=== PATIENT | female | born 1995 | race Caucasian/White ===

== ENCOUNTER 2021-01-22 09:09 | Inpatient (IN) | payer MEDICAID ==
[2021-01-22] MEDS ORDERED: Carboprost Tromethamine 250 MCG/1 ML Amp IM PRN (09:36)
[2021-01-22] MEDS ORDERED: Lidocaine 1% 30 ML SDV INJECT PRN (09:36)
[2021-01-22] MEDS ORDERED: Tranexamic Acid 1,000 MG in Sodium Chloride 0.9% 100 ML IV PRN (09:36)
[2021-01-22] MEDS ORDERED: Sodium Chloride 0.9% 10 ML Syringe FLUSH PRN ×2 (09:36→18:47)
[2021-01-22] MEDS ORDERED: Misoprostol 400 MCG (4 X 100 MCG TAB) RECTAL PRN (09:36)
[2021-01-22] MEDS ORDERED: Methylergonovine 0.2 MG/1 ML Amp IM PRN (09:36)
[2021-01-22] MEDS ORDERED: Lactated Ringers 1,000 ML IV ONE (09:36)
[2021-01-22] MEDS ORDERED: fentaNYL 100 MCG/2 ML SDV IVPUSH PRN (09:36)
[2021-01-22] MEDS ORDERED: Oxytocin/Normal Saline 30 UNIT/500 ML BAG IV SCH (09:45)
[2021-01-22] MEDS: Lactated Ringers 1,000 ML IV SCH ×3 (11:11→16:00)
--- NOTE | 2021-01-22 12:44 | PN ---
DATE: 01/22/2021 SUBJECTIVE: The patient's contractions are getting stronger. She just received some fentanyl. OBJECTIVE: VITAL SIGNS: heart tones in the 130s when detected. GENITOURINARY: Tocometer reveals occasional contractions. She is breathing through her contractions. Vaginal exam reveals her to be 4+ cm, -1 station, vertex suspected, 70% effaced, artificial rupture of membranes done after discussion with the patient yielding copious amounts of clear fluid. INVESTIGATIONS: Coronavirus disease negative. Hemoglobin was 9.9 and platelets were within normal limits. ASSESSMENT: Intrauterine at 39 and 6/7 weeks by 9 and 2/7 weeks ultrasound, admitted in active labor with contractions and cervical change in a G3, P0-2-0-2, GBS negative, Rh negative, RhoGAM given appropriately. Asthmatic with history of preeclampsia with blood pressures normal today. PLAN: We will continue to follow clinically and closely. Intrathecal at request. This was discussed with the patient. [facility] /[id number]
[2021-01-22] MEDS: Ondansetron 4 MG/2 ML SDV IVPUSH PRN ×2 (13:29→17:32)
[2021-01-22] MEDS ORDERED: Sodium Bicarbonate 4.2% 2.5 MEQ/5 ML SDV ONE ×3 (13:30→17:32)
[2021-01-22] MEDS ORDERED: Sodium Chloride 0.9% 20 ML SDV ONE (13:30)
[2021-01-22] MEDS ORDERED: fentaNYL 100 MCG/2 ML SDV IV ONE (13:30)
[2021-01-22] MEDS ORDERED: fentaNYL 100 MCG/2 ML SDV ONE ×2 (13:36→17:31)
[2021-01-22] MEDS ORDERED: EPINEPHrine 1 MG/1 ML Amp ONE ×2 (13:36→17:31)
--- NOTE | 2021-01-22 14:00 | PCM.SN.2 ---
- Free Text/Narrative Note: Intrathecal. Sitting position, sterile prep and drape. 1% lidocaine w bicarb for skinwheal to L2 L3 interspace. Introducer, 24 ga pencan x 1. I:1000 pf epi wash, 15 mcg pf sufenta, 35 mcg pf fentanyl, 0.4 ml pf NS and 6 mg of 0.75% pf Marcaine injected after CSF aspiration. Pt to L lateral position after 40 seconds. Procedure time 1330 to 1405
--- NOTE | 2021-01-22 14:39 | OBOUT ---
DATE: 01/22/2021 TIME: 9:20 to 9:38. REASON FOR NST: 1. Intrauterine at 39 and 6/7 weeks by 9 and 2/7 weeks ultrasound. 2. Contractions with suspected labor 3+ cm upon admission. 3. Rh negative. RhoGAM given on 12/01/2020 with Tdap as well. 4. History of preeclampsia. 5. Asthma. Uses albuterol and Flovent regularly. 6. GBS negative. 7. BV - treated earlier in the . 8. Urine drug screen is negative during the and also noted specifically on 10/16/2020 and 12/01/2020. 9. G3, P0-2-0-2. NST INTERPRETATION: During this time period, heart tone baseline is approximately 130 and at least two 15 x 15 beats per minute acceleration making this strip reactive and also noted to be reassuring. Tocometer reveals potential of 2 contractions felt by the patient. Blood pressure 125/62, heart rate 109, temperature 97.8. ASSESSMENT: 1. NST - reactive and reassuring. 2. Tocometer with 2 contractions and that were felt by the patient. PLAN: With this NST, vaginal exam revealed to be 3+ cm, -1 to -2 station, 60% to 70% effaced, vertex suspected with bag of water felt. She was initially scheduled for induction of labor later this weekend, but as she is in labor with significant cervical change from evaluation done earlier this week with painful contractions, we will admit and most likely we will proceed with artificial rupture of membranes and following clinically and closely thereafter. The patient understands and agrees with the above treatment plan. At the current time of dictation, waiting on a coronavirus disease and CBC before moving to her regular room as she is in the outpatient room. For this, history and physical was done through [employer]. Please see updates sticker to relate the above information noting that the patient started contractions on the evening of 01/21/2021, increasing in frequency and intensity to the point that they were rated 9/10, felt in the lower abdomen, coming anywhere from every 30 minutes to every 10 to 12 minutes, and has had cervical change as above. Plan will be to admit, artificial rupture of membranes after labs are negative and follow closely thereafter. Review of systems reviewed today and contributory for the above with notable for having some mild spotting with her contractions, otherwise no leaking of fluid. Good movement. She denies any headaches, visual changes, or upper abdominal pain. She states her breathing has been stable and has her inhalers with her, and most likely will use her home inhalers. Please see H and P otherwise done in [facility]. [facility] /[id number]
--- NOTE | 2021-01-22 17:49 | PCM.SN.2 ---
- Free Text/Narrative Note: Intrathecal. Sitting position, sterile prep and drape. 1% lidocaine w bicarb for skinwheal to L2 L3 interspace. Introducer, 24 ga pencan x 1. I:1000 pf epi wash, 15 mcg pf sufenta, 35 mcg pf fentanyl, 0.4 ml pf NS and 6 mg of 0.75% pf Marcaine injected after CSF aspiration. Pt to L lateral position after 20 seconds. Procedure time 1730 to 1800
[2021-01-22] MEDS ORDERED: Zolpidem 5 MG Tab PO PRN (18:47)
[2021-01-22] MEDS ORDERED: Oxytocin 10 Units/1 ML SDV IM PRN (18:47)
[2021-01-22] MEDS ORDERED: Benzocaine/Menthol 20%-0.5% Spray 78 GM Cannister TOP PRN (18:47)
--- NOTE | 2021-01-22 19:07 | PCM.DEL ---
L & D Note - Delivery Note Provider: Laith Campos Vacuum Extractor Progress Note - Alternative Labor Strategies Considered Alternative Labor Strategies Considered:: Reports: Yes Strategies Considered:: Reports: Contraction Intensity Adequate, Position Changes Used to Facilitate Rotation & Descent, Empty Bladder, Rest Indications Considered:: Reports: Yes Indications:: Reports: Suspicion of Immediate or Potential Compromise Time Out:: Reports: Yes - Patient Prepared Patient Prepared:: Reports: Yes Informed Consent:: Reports: Yes, Verbal Risks: Reports: Yes Risks Include:: Reports: Laceration, Shoulder Dystocia, Maternal Injury, Other ( injury) Anesthesia/Analgesia Adequate:: Reports: Yes - Probability of Success High Probability of Success:: Reports: Yes Weight Estimated:: Reports: AGA Patient Diabetic:: Reports: No Pelvis Adequate:: Reports: Yes Position:: RANDOLPH Asynclitic:: Reports: No Station:: VTX SEEN SPLITTING LABIA - Application Time Maximum Application Time & Number of Pop-Offs Predetermined:: Reports: Yes Number of Times Cup Disengaged:: 0 (SEE NURSES NOTES FOR TIMES) Type of Vacuum Used:: Reports: Cup: Soft (KIWI WITH SMALL CUP) Vacuum Extraction: Successful - Exit Strategy Exit strategy available:: Reports: Yes and resuscitation teams readily available:: Reports: Yes - General Info Date of Service: 01/22/21 - Patient Data Vitals - Most Recent: Last Vital Signs Temp 97.3 F 01/22/21 17:10 Pulse 87 01/22/21 17:25 Resp 18 01/22/21 09:25 BP 130/86 01/22/21 17:25 Pulse Ox 97 01/22/21 16:05 Weight - Most Recent: 94.347 kg I&O - Last 24 Hours: Intake & Output 01/22/21 01/22/21 01/22/21 06:59 14:59 22:59 Intake Total 1000 Balance 1000 Lab Results Last 24 Hours: Laboratory Results - last 24 hr 01/22/21 01/22/21 Range/Units 09:55 10:16 WBC 10.6 H (5.0-10.0) 10^3/uL RBC 3.35 L (4.2-5.4) 10^6/uL Hgb 9.9 L (12.0-16.0) g/dL Hct 31.2 L (37.0-47.0) % MCV 93.1 (80-100) fL MCH 29.6 (27.0-34.0) pg MCHC 31.7 L (33.0-35.0) g/dL Plt Count 291 (150-450) 10^3/uL SARS-CoV-2 RNA (FRANKLYN) Negative (NEGATIVE) Med Orders - Current: Current Medications Acetaminophen (Acetaminophen 325 Mg Tab) 650 mg PO Q4H PRN PRN Reason: Pain (Mild 1-3) and fever Benzocaine/Menthol (Benzocaine/Menthol 20%-0.5% [place] 78 Gm Cannister) 0 gm TOP Q4H PRN PRN Reason: Perineal comfort measures Carboprost Tromethamine (Carboprost Tromethamine 250 Mcg/1 Ml Amp) 250 mcg IM ASDIRECTED PRN PRN Reason: HEMORRHAGE Docusate Sodium (Docusate Sodium 100 Mg Cap) 100 mg PO BID PRN PRN Reason: Constipation Fentanyl (Fentanyl 100 Mcg/2 Ml Sdv) 50 mcg IVPUSH Q1H PRN PRN Reason: Pain (moderate 4-6) Last Admin: 01/22/21 11:12 Dose: 50 mcg Documented by: Ferrous Sulfate (Ferrous Sulfate 325 Mg Tab) 325 mg PO WITHBREAKFAST DEXTER Tranexamic Acid 1,000 mg/ (Sodium Chloride) 110 mls @ 660 mls/hr IV ONETIME PRN PRN Reason: Bleeding Oxytocin/Sodium Chloride (Pitocin In Ns 30 Unit/500 Ml) 30 unit in 500 mls @ 2 mls/hr IV TITRATE DEXTER; Protocol Last Titration: 01/22/21 18:50 Dose: 250 munits/min, 250 mls/hr Documented by: Lactated Ringer's (Ringers, Lactated) 1,000 mls @ 125 mls/hr IV ASDIRECTED DEXTER Last Admin: 01/22/21 16:00 Dose: 125 mls/hr Documented by: Ibuprofen (Ibuprofen 800 Mg Tab) 800 mg PO Q8H PRN PRN Reason: Pain Lidocaine HCl (Lidocaine 1% 30 Ml Sdv) 30 ml INJECT ASDIRECTED PRN PRN Reason: Perineal Repair Methylergonovine Maleate (Methylergonovine 0.2 Mg/1 Ml Amp) 0.2 mg IM ASDIRECTED PRN PRN Reason: Hemorrhage Misoprostol (Misoprostol 400 Mcg (4 X 100 Mcg Tab)) 800 mcg RECTAL ASDIRECTED PRN PRN Reason: Hemorrhage Ondansetron HCl (Ondansetron 4 Mg/2 Ml Sdv) 4 mg IVPUSH Q4H PRN PRN Reason: Nausea/Vomiting Last Admin: 01/22/21 17:32 Dose: 4 mg Documented by: Oxytocin (Oxytocin 10 Units/1 Ml Sdv) 10 unit IM ONETIME PRN PRN Reason: Bleeding Prenat Multivit/Vance/Iron/Folic Ac ( Multivitamin With Calcium/Folic Acid/Iron Tab) 1 each PO DAILY DEXTER Simethicone (Simethicone 80 Mg Tab.Chew) 80 mg PO Q4H PRN PRN Reason: Gas Sodium Chloride (Sodium Chloride 0.9% 10 Ml Syringe) 10 ml FLUSH ASDIRECTED PRN PRN Reason: Keep Vein Open Sodium Chloride (Sodium Chloride 0.9% 10 Ml Syringe) 10 ml FLUSH ASDIRECTED PRN PRN Reason: Keep Vein Open Zolpidem Tartrate (Zolpidem 5 Mg Tab) 5 mg PO BEDTIME PRN PRN Reason: Insomnia Discontinued Medications Epinephrine HCl (Epinephrine 1 Mg/1 Ml Amp) Confirm Administered Dose 1 mg .ROUTE .STK-MED ONE Stop: 01/22/21 13:37 Epinephrine HCl (Epinephrine 1 Mg/1 Ml Amp) Confirm Administered Dose 1 mg .ROUTE .STK-MED ONE Stop: 01/22/21 17:32 Fentanyl (Fentanyl 100 Mcg/2 Ml Sdv) Confirm Administered Dose 100 mcg .ROUTE .STK-MED ONE Stop: 01/22/21 13:37 Fentanyl (Fentanyl 100 Mcg/2 Ml Sdv) Confirm Administered Dose 100 mcg .ROUTE .STK-MED ONE Stop: 01/22/21 17:32 Lactated Ringer's (Ringers, Lactated) 1,000 mls @ 500 mls/hr IV BOLUS ONE Stop: 01/22/21 11:35 Sodium Bicarbonate (Sodium Bicarbonate 4.2% 2.5 Meq/5 Ml Sdv) Confirm Administered Dose 2.5 meq .ROUTE .STK-MED ONE Stop: 01/22/21 13:37 Sodium Bicarbonate (Sodium Bicarbonate 4.2% 2.5 Meq/5 Ml Sdv) Confirm Administered Dose 2.5 meq .ROUTE .STK-MED ONE Stop: 01/22/21 17:33 Sufentanil Citrate (Sufentanil 50 Mcg/1 Ml Amp) Confirm Administered Dose 50 mcg .ROUTE .STK-MED ONE Stop: 01/22/21 13:37 Sufentanil Citrate (Sufentanil 50 Mcg/1 Ml Amp) Confirm Administered Dose 50 mcg .ROUTE .STK-MED ONE Stop: 01/22/21 17:33 - Exam Urinary Catheter Total Time: 0Days 0Hours - Problem List Review Problem List Initiated/Reviewed/Updated: Yes - My Orders Last 24 Hours: My Active Orders 01/22/21 Breakfast Regular Diet [DIET] 01/22/21 09:36 Patient Status [ADT] Routine Communication Order [RC] ASDIRECTED Notify Provider Vital Signs OB [RC] ASDIRECTED Notify Provider [RC] PRN Up ad Laura [RC] ASDIRECTED Vital Signs [RC] 08,20 Acetaminophen [TylenoL] 650 mg PO Q4H PRN Carboprost Tromethamine [Hemabate DS] 250 mcg IM ASDIRECTED PRN Lidocaine 1% [Xylocaine-MPF 1%] 30 ml INJECT ASDIRECTED PRN Methylergonovine [Methergine] 0.2 mg IM ASDIRECTED PRN Ondansetron [Zofran] 4 mg IVPUSH Q4H PRN Sodium Chloride 0.9% [Saline Flush] 10 ml FLUSH ASDIRECTED PRN Tranexamic Acid [Cyklokapron] 1,000 mg Sodium Chloride 0.9% [Normal Saline] 100 ml IV ONETIME fentaNYL [Sublimaze] 50 mcg IVPUSH Q1H PRN miSOPROStoL [Cytotec] 800 mcg RECTAL ASDIRECTED PRN Saline Lock Insert [OM.PC] Routine Resuscitation Status Routine 01/22/21 09:45 Lactated Ringers [Ringers, Lactated] 1,000 ml IV ASDIRECTED Oxytocin/Normal Saline [Pitocin in NS 30 UNIT/500 ML] 30 unit in 500 ml IV TITRATE 01/22/21 Lunch Clear Liquid Diet [DIET] Regular Diet [DIET] 01/22/21 Dinner Regular Diet [DIET] 01/22/21 18:13 Nitrous Oxide Delivery [RC] ASDIRECTED 01/22/21 18:47 Up ad Laura [RC] ASDIRECTED Vital Signs [RC] PFP Benzocaine/Menthol [Dermoplast Pain Relief 20%-0.5% [place]] See Dose Instructions TOP Q4H PRN Docusate Sodium [Colace] 100 mg PO BID PRN Ibuprofen [Motrin] 800 mg PO Q8H PRN Oxytocin [Pitocin] 10 unit IM ONETIME PRN Simethicone 80 mg PO Q4H PRN Sodium Chloride 0.9% [Saline Flush] 10 ml FLUSH ASDIRECTED PRN Zolpidem [Ambien] 5 mg PO BEDTIME PRN Assess Lochia [WOMSER] Per Unit Routine Assess Uterine Involution [WOMSER] Per Unit Routine Breast Pump [WOMSER] Per Unit Routine Ice Therapy [OM.PC] Per Unit Routine Perineal Care [OM.PC] Per Unit Routine Saline Lock Insert [OM.PC] Urgent Sitz Bath [OM.PC] Per Unit Routine 01/22/21 18:48 Patient Status Manage Transfer [TRANSFER] Routine 01/22/21 19:02 RHOGAM, [RHIG WORKUP, ] [BBK] Routine 01/23/21 06:00 CBC W/O DIFF,HEMOGRAM [HEME] Routine 01/23/21 08:00 Ferrous Sulfate 325 mg PO WITHBREAKFAST 01/23/21 09:00 Vit with Ca/FA/Iron [ Plus Iron] 1 each PO DAILY
[2021-01-22] MEDS: Docusate Sodium 100 MG Cap PO PRN (21:27)
[2021-01-22] MEDS: Ibuprofen 800 MG Tab PO PRN (21:28)
[2021-01-22] MEDS: Simethicone 80 MG Tab.Chew PO PRN (21:29)
[2021-01-23] MEDS: Ibuprofen 800 MG Tab PO PRN ×3 (04:52→21:26)
[2021-01-23] MEDS: Prenatal Multivitamin with Calcium/Folic Acid/Iron Tab PO SCH (08:34)
[2021-01-23] MEDS: Simethicone 80 MG Tab.Chew PO PRN ×2 (08:34→21:26)
[2021-01-23] MEDS: Docusate Sodium 100 MG Cap PO PRN ×2 (08:34→21:26)
[2021-01-23] MEDS: Ferrous Sulfate 325 MG Tab PO SCH (08:34)
--- NOTE | 2021-01-23 09:19 | PN ---
DATE: 01/22/2021 SUBJECTIVE: The patient is comfortable now status post her second intrathecal. OBJECTIVE: heart tones in the 120s range. There was at least 1 acceleration seen. Some early decelerations are noted down into the 110 range. Vaginal exam reveals her to be anterior lip, 0 station, vertex suspected, and clear fluid still emanating from the vaginal area. Tocometer reveals contractions every couple of minutes. Pitocin is at 6 mU/min. ASSESSMENT: Intrauterine , 39-6/7 weeks by 9-2/7 weeks, admitted in active labor, and Rh negative, group B Streptococcus negative, asthmatic, G3, P0- 2-0-2, who has anemia with a hemoglobin 9.9. PLAN: The patient is now status post artificial rupture of membranes, Pitocin augmentation, 2 intrathecals, and appears to be nearing second stage of labor. We will follow maternal status closely and consider pushing once she is in the second stage of labor. Did discuss this with the patient. We will continue to follow clinically and closely at this time. [facility] /[id number]
--- NOTE | 2021-01-23 10:00 | DEL ---
DATE: 01/22/2021 PREOPERATIVE DIAGNOSES: 1. Intrauterine 39-6/7th weeks by 9-2/7th week ultrasound. 2. Active labor upon admission. 3. Rh negative. RhoGAM given on 12/01/2020 with Tdap in the clinic. 4. History of preeclampsia. 5. Asthma. 6. GBS negative. 7. BV -treated earlier in the . 8. Urine drug screen is negative 10/16/2020 and 12/01/2020. 9. Anemia of with hemoglobin 9.9 upon admission. 10.G3, P0-2-0-2. 11. bradycardia preceeding repetitive decelerations in the second stage of labor. POSTOPERATIVE DIAGNOSES: 1. Intrauterine 39-6/7th weeks by 9-2/7th week ultrasound - delivered via vacuum assisted vaginal delivery. 2. Active labor upon admission. 3. Rh negative. RhoGAM given on 12/01/2020 with Tdap in the clinic. 4. History of preeclampsia. 5. Asthma. 6. GBS negative. 7. BV -treated earlier in the . 8. Urine drug screen is negative 10/16/2020 and 12/01/2020. 9. Anemia of with hemoglobin 9.9 upon admission. 10.G3, P0-2-0-2. 11. bradycardia preceding repetitive decelerations in the second stage of labor. 12.Nuchal cord x1, reduced bluntly at delivery. 13.First-degree perineal laceration - bleeding and repaired after discussion with the patient. PROCEDURE PERFORMED: Nonstress test followed by artificial rupture of membranes. Pitocin augmentation and then subsequent vacuum-assisted vaginal delivery with first-degree perineal laceration - repaired per Dr. Lund on 01/22/2021. ANESTHESIA/ANALGESIA: The patient did receive fentanyl in the early 1st stage of labor and then received 2 intrathecals in late 1st stages of labor. ESTIMATED BLOOD LOSS: 300 mL. FINDING: Male, score and weight pending. SUMMARY OF EVENTS: The patient is a 25-year-old, G3, P0-2-0-2 intrauterine at 39-6/7th weeks by 9-2/7th week ultrasound admitted on 01/22/2021 with contraction and cervical change. She underwent artificial rupture of membranes and then subsequently Pitocin augmentation. Did receive some fentanyl in the first stage of labor and then 2 intrathecal in the later 1st stages of labor. I presented and did evaluate her. She had an anterior rim and then shortly thereafter, decelerations were noted with bradycardia and then subsequent repetitive deceleration suspect repetitive variable decelerations with contraction with difficulty determining heart tones externally. Subsequently, the patient started pushing with contractions as she was found to be complete. Immediately prior to this, Miranda type catheter was introduced under sterile technique using Betadine to clean the periurethral regions draining minimal yellow-colored urine. miranda catheter removed. Subsequently, the patient pushed with contractions. descent was noted and decelerations continued with suspected bradycardia. Discussion ensued in regard to using Kiwi vacuum assistance. Did discuss with her and her male partner risks, benefits, and also complications of this. She understood, agreed, and wished to proceed. Verbal consent obtained and questions were answered. Subsequently, with the next episode of pushing, vertex was seen splitting the labia. Kiwi vacuum low- profile type vacuum cup was applied to the vertex pumped up to the green with gentle pulling with patient pushing vertex was subsequently delivered. Vacuum was disengaged. Nuchal cord x1 was noted and reduced bluntly at delivery. RANDOLPH presentation was noted. Anterior and posterior shoulder as well as rest of the infant delivered without difficulty thereafter. Mouth and nares were suctioned. Cord was doubly clamped, cut, and infant was resuscitated on mother's abdomen. Then, approximately 10 mL cord blood was obtained for labs. Placenta then delivered with gentle cord traction and fundal massage within 5 minutes. Perineum, vagina, and perirectal areas were examined and noted to have a first- degree perineal laceration that was bleeding and was repaired with 3-0 Vicryl for hemostasis. Mother and are currently stable at time of dictation. [facility] /[id number] JOB
--- NOTE | 2021-01-23 11:52 | PN ---
DATE: 01/23/2021 day #1, status post vacuum-assisted vaginal delivery with first- degree perineal laceration - repaired. SUBJECTIVE: The patient is tolerating p.o., was ambulating, urinating, passing flatus, and requesting a refill on her albuterol inhaler that she ran out. Denies any shortness of breath. OBJECTIVE: Vital Signs: Temperature 98, heart rate 98, blood pressure 124/89, and respiratory rate 18. Lungs: Clear to auscultation bilaterally. Heart: S1, S2. Regular rate and rhythm. Abdomen: Firm uterus around the umbilicus. Extremities: Trace pedal edema. No calf pain. LABORATORY DATA: White cell count 14.3, hemoglobin 8.9, and platelets are 281. ASSESSMENT: 1. day #1 status post vacuum-assisted vaginal delivery with first- degree perineal laceration - repaired. Plan, we will continue to follow clinically and closely. Due to her anemia, iron has been started. We will continue on vitamins. 2. Asthma. The patient needs refill on her albuterol. We will order this for her today and continue to follow clinically and closely. Possible discharge tomorrow. [facility] /[id number]
[2021-01-23] MEDS: Albuterol 6.7 GM Inhaler INH PRN ×2 (14:21→21:30)
[2021-01-23] MEDS: Acetaminophen 325 MG Tab PO PRN (21:27)
[2021-01-24] MEDS: Albuterol 6.7 GM Inhaler INH PRN (04:18)
[2021-01-24] MEDS: Acetaminophen 325 MG Tab PO PRN (08:40)
[2021-01-24] MEDS: Prenatal Multivitamin with Calcium/Folic Acid/Iron Tab PO SCH (08:40)
[2021-01-24] MEDS: Ferrous Sulfate 325 MG Tab PO SCH (08:40)
[2021-01-24] MEDS: Ibuprofen 800 MG Tab PO PRN (08:42)
[2021-01-24] MEDS: Docusate Sodium 100 MG Cap PO PRN (08:42)
--- NOTE | 2021-01-24 12:43 | DISCH ---
ADMIT DIAGNOSES: 1. Intrauterine at 39-6/7 weeks by 9-2/7 week ultrasound. 2. Contractions with active labor upon admission. 3. Rh negative. RhoGAM given on 12/01/2020 with her Tdap in the clinic. 4. History of preeclampsia. 5. Asthma, currently on Flovent and albuterol. 6. GBS negative. 7. Bacterial vaginosis-treated earlier in the . 8. Urine drug screen negative earlier in the on 10/16/2020 and 12/01/2020. 9. Anemia with hemoglobin 9.9. 10.G3, P0-2-0-2. DISCHARGE DIAGNOSES: 1. Intrauterine at 39-6/7 weeks by 9-2/7 week ultrasound-delivered. 2. Contractions with active labor upon admission. 3. Rh negative. RhoGAM given on 12/01/2020 with her Tdap in the clinic and prior to discharge. 4. History of preeclampsia. 5. Asthma, currently on Flovent and albuterol. 6. GBS negative. 7. Bacterial vaginosis-treated earlier in the . 8. Urine drug screen negative earlier in the on 10/16/2020 and 12/01/2020. 9. Anemia with hemoglobin 9.9. 10.G3, P0-2-0-2. 11. bradycardia preceding repetitive decelerations in the second stage of labor. 12.Anemia of acute blood loss, hemoglobin dropping down to 8.9, currently asymptomatic. 13.First-degree perineal laceration-repaired. 14.Nuchal cord x1, reduced bluntly at delivery. PROCEDURES PERFORMED: Nonstress test, artificial rupture of membranes, Pitocin augmentation, and vacuum-assisted vaginal delivery with first-degree perineal laceration-repaired per Dr. Lund. HISTORY OF PRESENT ILLNESS: Please see H and P. SUMMARY OF HOSPITAL COURSE: The patient was admitted on the above date with the above diagnoses in active labor, underwent the above procedures, went on to have vacuum-assisted vaginal delivery with first-degree perineal laceration repaired with an EBL of 300 mL yielding a male, scores of 9 and 9, weighing 3835 g (8 pounds 7 ounces). There was bradycardia preceding repetitive decelerations, please see delivery note for further details. day #1, please see progress note. day #2, date of discharge, the patient was tolerating p.o., ambulating, urinating, passing flatus, requesting discharge. PHYSICAL EXAMINATION: Vital Signs: Last set of vitals show temperature 98.8, heart rate of 71, blood pressure 129/84, respiratory rate 16. Lungs: Clear to auscultation bilaterally. No increased work of breathing. Heart: S1 and S2, regular rate and rhythm. Abdomen: Firm uterus, -2 below umbilicus. Extremities: Trace pedal edema. No calf pain. LABORATORY DATA: Day prior to discharge, day #1, white cell count 14.3, hemoglobin 8.9, and platelets 281. CONDITION ON DISCHARGE COMPARED TO CONDITION ON ADMISSION: Improved. DISCHARGE INSTRUCTIONS: 1. Diet as tolerated. 2. Activity: No lifting more than 20 pounds. No sit-ups or straining. Pelvic rest for the next 6 weeks with immediate return of fertility fully discussed with the patient. 3. Reason to return to go to the emergency room discussed with the patient in detail including, but not limited to temperature greater than 100.4, foul- smelling discharge, red or tender breasts, or increased vaginal bleeding. DISCHARGE MEDICATIONS: 1. [id number] Tylenol or ibuprofen for pain. 2. vitamins daily. 3. Iron sulfate 325 b.i.d. x6 weeks. FOLLOWUP: 6 weeks . Follow up with her baby 2 days from now and was instructed to call tomorrow morning to make an appointment in the clinic with me, and did discuss with her in the interim reasons to go to the emergency room in regard to her baby. [facility] /[id number] JOB
== END 2021-01-24 12:10 | disposition home or self-care (01) | DRG 806 ==
LOC: DL.OBCHECK 09:09 → DL.OB 09:40 → OBSVTOIN 18:30
PROVIDERS: ADMIT Family Medicine; ATTEND Family Medicine
PROC: 10D07Z6 Extraction of Products of Conception, Vacuum, Via Natural or Artificial Opening (ICD-10-PCS; principal; 2021-01-22)
PROC: 10907ZC Drainage of Amniotic Fluid, Therapeutic from Products of Conception, Via Natural or Artificial Opening (ICD-10-PCS; 2021-01-22)
PROC: 0HQ9XZZ Repair Perineum Skin, External Approach (ICD-10-PCS; 2021-01-22)
PROC: 3E0R3BZ Introduction of Anesthetic Agent into Spinal Canal, Percutaneous Approach (ICD-10-PCS; 2021-01-22)
PROC: 00HU33Z Insertion of Infusion Device into Spinal Canal, Percutaneous Approach (ICD-10-PCS; 2021-01-22)
DX: O99.02 Anemia complicating childbirth (principal); D62 Acute posthemorrhagic anemia; Z37.0 Single live birth; O99.52 Diseases of the respiratory system complicating childbirth; J45.909 Unspecified asthma, uncomplicated; O76 Abnormality in fetal heart rate and rhythm complicating labor and delivery; O70.0 First degree perineal laceration during delivery; O69.81X0 Labor and delivery complicated by cord around neck, without compression, not applicable or unspecified; Z20.822 Contact with and (suspected) exposure to COVID-19; O99.334 Smoking (tobacco) complicating childbirth; F17.210 Nicotine dependence, cigarettes, uncomplicated; Z3A.39 39 weeks gestation of pregnancy
CPT/HCPCS: 36415; 51701; 59409; 85027; 85461; 86850; 86870; 86900; 86901; A9270-GY; J2405; J2590; J2790; J3010; J7120; U0002